=== PATIENT | female | born 1950 | race Caucasian/White ===

== ENCOUNTER 2020-10-10 08:45 | Day surgery (SDC) | payer OTHER ==
[2020-10-07 17:57] VITALS: BMI 30.4
[2020-10-10] MEDS: PHENYLEPHRINE 2.5% OPHTH SOLN 15 ML BOTTLE ONE ×3 (10:35→10:45)
[2020-10-10] MEDS: CYCLOPENTOLATE 2% OPHTH SOLN 2 ML BOTTLE ONE ×3 (10:35→10:45)
[2020-10-10] MEDS: TROPICAMIDE 1% OPHTH SOLN 15 ML BOTTLE ONE ×3 (10:35→10:45)
[2020-10-10] MEDS: CIPROFLOXACIN 0.3% EYE DROPS 5 ML BOTTLE ONE ×3 (10:35→10:45)
[2020-10-10] MEDS ORDERED: BSS (NA/CA/MG/K) BALANCED SALT SOLUTION OPHTH SOLN 15 ML BOTTLE ONE (11:29)
[2020-10-10] MEDS ORDERED: LIDOCAINE 1% P/F 10 MG/ML VIAL ONE (11:29)
[2020-10-10] MEDS ORDERED: TETRACAINE 0.5% OPHTH SOLN 2 ML BOTTLE ONE (11:29)
[2020-10-10] MEDS ORDERED: CARBACHOL 0.01% INTRA-OCULAR 1.5 ML VIAL ONE (11:29)
[2020-10-10] MEDS ORDERED: NEO/POLYMYX B SULF/DEXAMETH OPHTHALMIC 5ML BOTTLE ONE (11:29)
[2020-10-10] MEDS ORDERED: MIDAZOLAM HCL 2 MG/2 ML SINGLE DOSE VIAL ONE ×2 (11:43→11:53)
[2020-10-10 12:38] VITALS: PULSE 65; TEMP 97.8
[2020-10-10 13:19] VITALS: BP 116/74
== END 2020-10-10 13:15 | disposition home or self-care (01) ==
LOC: FASU 08:45
PROVIDERS: ATTEND Ophthalmology
PROC: 08RJ3JZ Replacement of Right Lens with Synthetic Substitute, Percutaneous Approach (ICD-10-PCS; principal; 2020-10-10 11:49)
DX: H26.8 Other specified cataract (principal)
CPT/HCPCS: 82962